=== PATIENT | male | born 1950 | race Native Hawaiian/Other Pacific Islander ===

== ENCOUNTER 2017-08-20 22:40 | Inpatient (IN) | payer BC, MEDICARE ==
[~2017-08-20] VITALS: Ht 165.1 cm; Wt 91.0 kg
[2017-08-20 22:46] VITALS: BP 142/73; PULSE 111; RESP 18; TEMP 102.3; O2SAT 95
--- NOTE | 2017-08-20 23:47 | PD ---
HPI Chief Complaint: Fever Time Seen by Provider: 23:34 Travel History International Travel<30 days: Yes ([place]) Contact w/Intl Traveler<30days: [place] Country Traveled to: [place] Traveled to known affect area: No History of Present Illness HPI The patient is a 66 year old male who presents to the [facility] emergency department with a history of febrile illness of began on . The patient has had a MAXIMUM TEMPERATURE of 103 at home. The patient reports that he has been taking Tylenol alternating with ibuprofen for the fever. The patient reports having associated dysuria, urinary frequency, and urinary urgency. He also reports having bilateral knee, ankle, and elbow pain that he describes as 10 out of 10 in severity. He denies having any joint swelling or erythema. He reports that he is also had a sore throat. He denies having any cough, congestion, neck pain, chest pain, shortness of breath, abdominal pain, vomiting , diarrhea, urinary symptoms, or neurologic symptoms. He reports that he has been nauseated. The patient reports that he traveled to [place] 08/01-08/04. [facility]. He was bitten by fire ant bites and mosquitos. The patient reports that he went to an outpatient clinic yesterday. He was diagnosed with pyelonephritis and sent home with a prescription for Cipro and doxycycline. Laboratory studies were done. He was called back today by the outpatient clinic stating that he could stop the antibiotic as the tests were negative. The patient reports that he had a negative seated test. The patient reports that he had a negative malaria tests. His urinalysis showed occult blood, otherwise unremarkable. The patient was noted to have renal insufficiency with a creatinine of 1.77 which increased compared to previously at 1.2. He denies having any rashes. [facility] Past Medical History Narrative Medical The patient's past medical history is significant for hyperlipidemia, TTP 2004- s/p immunoglobulin treatment. High Cholesterol: Yes Diminished Hearing: No Tetanus Vaccination: Unknown Influenza Vaccination: Yes Past Surgical History Narrative Surgical The patient's past surgical history is significant for tonsil and adenoidectomy. Tonsillectomy: Yes (T&A) Social History Alcohol Use: No Tobacco Use: No Substance Use: No Allergies-Medications (Allergen,Severity, Reaction): Coded Allergies: No Known Allergies (Unverified , 08/20/17) Narrative Medication atorvastatin 40mg. Review of Systems Except as stated in HPI: all other systems reviewed are Neg General / Constitutional: Positive: Fever Eyes: No: Visual changes HENT: Positive: Sore Throat, No: Headaches, Rhinorrhea, Congestion Cardiovascular: No: Chest Pain or Discomfort Respiratory: Positive: Cough, No: Shortness of Breath Gastrointestinal: Positive: Nausea, No: Vomiting, Diarrhea, Abdominal Pain, Changes in Bowel Habits, Indigestion Genitourinary: No: Dysuria Musculoskeletal: Positive: Myalgias, Arthralgias, Pain, No: Edema Skin: No Rash Neurologic: Positive: Weakness (generalized fatigue), No: Focal Abnormalities, Change in Mentation, Slurred Speech, Sensory Disturbance Psychiatric: No: Depression Endocrine: No: Polydipsia Hematologic/Lymphatic: No: Easy Bruising Physical Exam Narrative General: The patient is a well-developed well-nourished male in no acute distress. Head and Neck exam: Head is normocephalic atraumatic. Eyes: EOMI, pupils are equal round and reactive to light. Nose: Midline septum with pink mucous membranes Mouth: Dentition unremarkable. Moist mucus membranes. Posterior oropharynx is mildy erythematous. No tonsillar hypertrophy. Uvula midline. Airway patent. Neck: No palpable lymphadenopathy. No nuchal rigidity. No thyromegaly. Cardiovascular: Sinus tachycardia in the low 100s without murmurs, gallops, or rubs. No pulse deficit to the extremities on simultaneous auscultation and palpation of the radial artery. Lungs: Clear to auscultation bilaterally. No wheezes, rhonchi, or rales. Abdomen: Soft, with tenderness on palpation along the suprapubic area and left lower quadrant of the abdomen. No other tenderness on palpation of the other quadrants of the abdomen. No guarding, rebound, or rigidity. Normal bowel sounds are audible. No tenderness on palpation of McBurney's point. Negative Ybarra's sign. Extremities: No clubbing, cyanosis, or edema. 2+ pulses in all 4 extremities. No calf tenderness on palpation. The patient reports joint pain in his elbows, knees, ankles. There is no erythema or edema. Back: No spinous process tenderness to palpation. No costovertebral angle tenderness to palpation. Neurologic Exam: Grossly nonfocal. Skin Exam: No rash noted. Intact skin that is warm and dry. Data Data Last Documented VS Vital Signs Date Time Temp Pulse Resp B/P (MAP) Pulse Ox O2 Delivery O2 Flow Rate FiO2 08/21/17 01:20 100.3 105 16 140/70 (93) 96 Room Air Orders Orders Complete Blood Count With Diff (08/20/17 23:49) Comprehensive Metabolic Panel (08/20/17 23:49) Blood Culture (08/20/17:49) C-Reactive Protein (Crp) (08/20/17 23:49) Lipase (08/20/17:49) Urinalysis - C+S If Indicated (08/20/17:49) Influenzae A/B Antigen (08/20/17:49) Iv Access Insert/Monitor (08/20/17:49) Ecg Monitoring (08/20/17:49) Oximetry (08/20/17 23:49) Sodium Chlor 0.9% 1000 Ml Inj (Ns 1000 M (08/21/17 00:00) Ketorolac Inj (Toradol Inj) (08/21/17 00:00) Oral Contrast - Adult (08/21/17 00:08) Lactic Acid Sepsis Protocol (08/21/17 00:24) Diatrizoate Liq ([place]d [place] Liq) (08/21/17 00:57) Diatrizoate Liq (Md [place] Lidelmi) (08/21/17 00:58) Sodium Chlor 0.9% 1000 Ml Inj (Ns 1000 M (08/21/17 01:27) Sodium Chlor 0.9% 1000 Ml Inj (Ns 1000 M (08/21/17 01:27) Piperacil-Tazo 3.375 Gm Premix (Zosyn 3. (08/21/17 01:30) Vancomycin Inj (Vancomycin Inj) (08/21/17 01:30) Ct Abd/Pel W/O Iv Contrast (08/20/17 23:49) Admit Order (Ed Use Only) (08/21/17 02:31) Labs Laboratory Tests Test 08/21/17 00:05 08/21/17 00:22 White Blood Count 5.6 TH/MM3 Red Blood Count 4.44 MIL/MM3 Hemoglobin 14.0 GM/DL Hematocrit 40.3 % Mean Corpuscular Volume 90.8 FL Mean Corpuscular Hemoglobin 31.5 PG Mean Corpuscular Hemoglobin Concent 34.7 % Red Cell Distribution Width 13.6 % Platelet Count 128 TH/MM3 Mean Platelet Volume 9.8 FL Neutrophils (%) (Auto) 81.9 % Lymphocytes (%) (Auto) 6.3 % Monocytes (%) (Auto) 10.8 % Eosinophils (%) (Auto) 0.7 % Basophils (%) (Auto) 0.3 % Neutrophils # (Auto) 4.6 TH/MM3 Lymphocytes # (Auto) 0.4 TH/MM3 Monocytes # (Auto) 0.6 TH/MM3 Eosinophils # (Auto) 0.0 TH/MM3 Basophils # (Auto) 0.0 TH/MM3 CBC Comment DIFF FINAL Differential Comment Urine Color YELLOW Urine Turbidity HAZY Urine pH 5.5 Urine Specific [place] 1.012 Urine Protein 30 mg/dL Urine Glucose (UA) NEG mg/dL Urine Ketones NEG mg/dL Urine Occult Blood SMALL Urine Nitrite NEG Urine Bilirubin NEG Urine Urobilinogen LESS THAN 2.0 MG/DL Urine Leukocyte Esterase NEG Urine RBC 2 /hpf Urine WBC 3 /hpf Urine Amorphous Sediment RARE Urine Bacteria RARE /hpf Microscopic Urinalysis Comment CULT NOT INDICATED Blood Urea Nitrogen 23 MG/DL Creatinine 1.95 MG/DL Random Glucose 135 MG/DL Total Protein 6.4 GM/DL Albumin 2.4 GM/DL Calcium Level 7.7 MG/DL Alkaline Phosphatase 163 U/L Aspartate Amino Transf (AST/SGOT) 151 U/L Alanine Aminotransferase (ALT/SGPT) 121 U/L Total Bilirubin 0.8 MG/DL Sodium Level 130 MEQ/L Potassium Level 3.6 MEQ/L Chloride Level 102 MEQ/L Carbon Dioxide Level 21.9 MEQ/L Anion Gap 6 MEQ/L Estimat Glomerular Filtration Rate 35 ML/MIN C-Reactive Protein 19.60 MG/DL Lipase 341 U/L Lactic Acid Level 0.8 mmol/L [facility] Medical Decision Making Medical Screen Exam Complete: Yes Emergency Medical Condition: Yes Medical Record Reviewed: Yes Interpretation(s) Last Impressions Abdomen/Pelvis CT 08/20/17 6005 Signed Impressions: Service Date/Time: Monday, August 21, 2017 01:53 - CONCLUSION: 1. No evidence of acute abdominal or pelvic process. No masses are identified. 2. Appendicolith within the noninflamed appendix Sanju Snyder MD Differential Diagnosis Prostatitis, versus pyelonephritis, versus tickborne illness, versus malaria, versus other viral syndrome, versus sepsis of undetermined origin, versus diverticulitis Narrative Course During the course of the patients emergency department visit, the patients history, examination, and differential diagnosis were reviewed with the patient. The patient had IV access obtained and blood work sent for analysis. The patient was placed on a corporate treasury analyst with oximetry and blood pressure monitoring. A sepsis workup was started. A lactic acid and blood cultures 2 were drawn. The patient was initially provided 30 mL per KG IV fluid bolus. The patient was started on broad-spectrum antibiotics to include Zosyn and vancomycin. The patient was given Toradol 15 mg IV for fever reduction and joint pain. The patients laboratory studies were reviewed and remarkable for a white count of 5.6, hemoglobin 14, platelets 128 with 81.9 neutrophils, lymphocytes 6.3, monocytes 10.8. CMP is remarkable for sodium of 130, BUN 23, creatinine 1.95, glucose 135, calcium 7.7, AST 151, ALT 121, alkaline phosphatase 163, C- reactive protein 19.6, albumin 2.4, lipase 341, urinalysis shows 30 protein, small occult blood, 2 rbc's, rare bacteria. Radiology studies were reviewed and remarkable for a chest x-ray that shows cardiomegaly, no acute evidence of cardiopulmonary disease. CT scan of the abdomen and pelvis shows no acute abnormality. The patient will be admitted to the hospital for continued evaluation and treatment due to a febrile illness meeting sepsis criteria, and acute on chronic renal insufficiency. The patients results were discussed with the patient, including the plan of care. I explained that further testing and/ or monitoring is indicated based on the patients history, examination, and/ or laboratory findings. Therefore, I recommended admission for additional evaluation. The patient expressed understanding and was agreeable with this plan. The patient was admitted to the hospital in guarded condition and [facility] Critical Care Narrative Aggregate critical care time was 35 minutes. Time to perform other separately billable procedures was not included in the critical care time. My time did not include minutes spent treating any other patients simultaneously or on activities that did not directly contribute to the patient's treatment. The services I provided to this patient were to treat and/or prevent clinically significant deterioration that could result in: Respiratory failure related to fluid overload from IV fluid resuscitation, versus cardiovascular collapse from sepsis I provided critical care services requiring my management, as noted below: Chart data review, documentation time, medication orders and management, vital sign assessments/reviewing monitor data, ordering and reviewing lab tests, ordering and interpreting/reviewing x-rays and diagnostic studies, care of the patient and discussion of the patient with the admitting physicians. Sepsis Criteria SIRS Criteria (2 or more): Temp > 100.9 or < 96.8, Heart rate over 90 Sepsis Criteria (SIRS+source): Infect source susp/known Severe Sepsis (+one): Acute Oliguria/Renal Failure Criteria Outcome: Meets SIRS criteria, Meets sepsis criteria, Meets severe sepsis criteria Physician Communication Physician Communication The patient's case is discussed with Dr. Stratton who did agree to admit the patient for further evaluation and treatment at this time. Diagnosis Primary Impression: Febrile illness Additional Impression: Sepsis Qualified Codes: A41.9 - Sepsis, unspecified organism Admitting Information Admitting Physician Requests: Admit Camelia Martinez MD Aug 20, 2017 23:47
[2017-08-21] VITALS (11 sets, daily range): BP systolic 97–140; BP diastolic 59–82; PULSE 86–105; RESP 16–20; TEMP 99–101.8; O2SAT 94–98
[2017-08-21] MEDS ORDERED: KETOROLAC TROMETHAMINE 30 MG/ML (IVP) VIAL IV PUSH ONE
[2017-08-21 00:54] LABS: AUTOMATED NEUTROPHIL # 4.6 TH/MM3 (1.8-7.7); BASOPHIL % 0.3 % (0.0-2.0); EOSINOPHIL % 0.7 % (0.0-4.0); HEMATOCRIT 40.3 % (39.0-51.0); HEMO FLAGS DIFF FINAL; LYMPH % 6.3 % (9.0-44.0); LYMPHOCYTE # 0.4 TH/MM3 (1.0-4.8); MEAN CELL VOLUME 90.8 FL (80.0-100.0); MEAN CORPUSCULAR HEMOGLOBIN 31.5 PG (27.0-34.0); MEAN CORPUSCULAR HGB CONC 34.7 % (32.0-36.0); MONO % 10.8 % (0.0-8.0); NEUT % 81.9 % (16.0-70.0); PLATELET COUNT 128 TH/MM3 (150-450); RED BLOOD COUNT 4.44 MIL/MM3 (4.50-5.90); RED CELL DISTRIBUTION WIDTH 13.6 % (11.6-17.2); WHITE BLOOD COUNT 5.6 TH/MM3 (4.0-11.0)
[2017-08-21] MEDS ORDERED: DIATRIZOATE MEGLUM/DIATRIZOATE SOD 9 ML CUP ONE ×2 (00:57→00:58)
[2017-08-21 00:58] LABS: BACTERIA, URINE RARE /hpf; BLOOD, URINE SMALL (NEG); COMMENT (UR) CULT NOT INDICATED; CULTURE IF INDICATED CULT NOT INDICATED; GLUCOSE,URINE NEG (NEG); KETONE, URINE NEG (NEG); NITRITE,URINE NEG (NEG); PH, URINE 5.5 (5.0-8.5); URINE COLOR YELLOW (YELLW/STRAW)
[2017-08-21 01:11] LABS: ALT (GPT) 121 U/L (12-78); ANION GAP 6 MEQ/L (5-15); AST (GOT) 151 U/L (15-37); BICARBONATE 21.9 MEQ/L (21.0-32.0); BLOOD UREA NITROGEN 23 MG/DL (7-18); CHLORIDE 102 MEQ/L (98-107); POTASSIUM 3.6 MEQ/L (3.5-5.1); SODIUM (NA) 130 MEQ/L (136-145)
[2017-08-21 01:17] LABS: ALKALINE PHOSPHATASE 163 U/L (45-117); TOTAL BILIRUBIN ADULT 0.8 MG/DL (0.2-1.0)
[2017-08-21] MEDS ORDERED: SODIUM CHLOR 0.9% 1000 ML INJ 1,000 ML IV ONE ×3 (01:27)
[2017-08-21] MEDS ORDERED: VANCOMYCIN INJ 1,000 MG in SODIUM CHLOR 0.9% 250 ML INJ 250 ML IV ONE (01:30)
[2017-08-21] MEDS ORDERED: PIPERACIL-TAZO 3.375 GM PREMIX 50 ML IV ONE (01:30)
--- NOTE | 2017-08-21 02:26 | RADRPT ---
EXAM DATE/TIME: 08/21/2017 01:53 [facility] COMPARISON: No previous studies available for comparison. INDICATIONS : Mid to left side abdominal pain along with dysuria and fever. ORAL CONTRAST: Prescribed oral contrast ingested. RADIATION DOSE: 15.46 CTDIvol (mGy) MEDICAL HISTORY : None SURGICAL HISTORY : None. ENCOUNTER: Initial ACUITY: 4 - 6 days PAIN SCALE: 7/10 LOCATION: Abdomen. TECHNIQUE: Volumetric scanning of the abdomen and pelvis was performed. Using automated exposure control and ad justment of the mA and/or kV according to patient size, radiation dose was kept as low as reasonably achievable to obtain optimal diagnostic quality images. DICOM format image data is available electro nically for review and comparison. FINDINGS: There is subsegmental atelectasis in the both bases. A small hiatal hernia is present. The liver and spleen are normal in size and no focal defects are identified. The gallbladder and pancreas are unre markable. No intrahepatic or extrahepatic ductal dilatation is seen. The adrenal glands are unremarka ble. There are simple cysts bilaterally the largest measuring 4 cm in the lower pole. Examination of the right lower quadrant demonstrates no abnormality. The appendix is identified and appears normal w ith the exception of a tiny appendicolith. Examination of the pelvis demonstrates no evidence of free fluid or pelvic mass. No abnormally enlarg ed inguinal or retroperitoneal lymph nodes are present. The bladder is unremarkable. CONCLUSION: 1. No evidence of acute abdominal or pelvic process. No masses are identified. 2. Appendicolith within the noninflamed appendix Sanju Snyder MD on August 21, 2017 at 2:19 Board Certified Radiologist. This report was verified electronically.
[2017-08-21] MEDS ORDERED: SODIUM CHLORIDE 0.9% FLUSH 10 ML FLUSH IV FLUSH PRN (03:00)
[2017-08-21] MEDS ORDERED: Vancomycin Consult Pharmacy 1 EA OTHER SCH (03:00)
[2017-08-21] MEDS ORDERED: NALOXONE HCL 0.4 MG/ML AMP IV PUSH PRN (03:00)
--- NOTE | 2017-08-21 03:28 | RADRPT ---
EXAM DATE/TIME: 08/21/2017 02:52 [facility] COMPARISON: No previous studies available for comparison. INDICATIONS : Fever. MEDICAL HISTORY : None. SURGICAL HISTORY : None. ENCOUNTER: Initial ACUITY: 4 - 6 days PAIN SCORE: 7/10 LOCATION: Bilateral chest FINDINGS: The cardiac silhouette is enlarged in transverse diameter. The lungs are free of acute parenchymal op acity. No effusions are identified. The aortic knob is prominent with tortuosity of the descending th oracic aorta. CONCLUSION: 1. Cardiomegaly. No acute pulmonary disease. Sanju Snyder MD on August 21, 2017 at 3:23 Board Certified Radiologist. This report was verified electronically.
[2017-08-21] MEDS ORDERED: IBUPROFEN 400 MG TAB PO ONE (03:30)
[2017-08-21 05:58] LABS: GLOMERULAR FILTRATION RATE 35 ML/MIN (>89)
[2017-08-21] MEDS: PIPERACIL-TAZO 4.5 GM PREMIX 100 ML IV SCH ×3 (08:59→22:51)
[2017-08-21] MEDS: SODIUM CHLORIDE 0.9% FLUSH 10 ML FLUSH IV FLUSH SCH ×2 (10:01→22:51)
--- NOTE | 2017-08-21 11:09 | HHI.HP ---
[facility] Service [facility] Primary Care Physician Lico Nunn MD Admission Diagnosis Acute on chronic renal insufficiency, febrile illness, foreign trave Diagnoses: Travel History International Travel<30 Days: Yes ([place]) Contact w/Intl Traveler <30 Da: [place] Country Traveled to: [place] Traveled to Known Affected Are: No Past Family Social History Allergies: Coded Allergies: No Known Allergies (Unverified , 08/20/17) Physical Exam Vital Signs Vital Signs Date Time Temp Pulse Resp B/P (MAP) Pulse Ox O2 Delivery O2 Flow Rate FiO2 08/21/17 10:19 88 08/21/17 07:59 99.0 86 18 108/64 (79) 97 08/21/17 04:48 18 08/21/17 04:37 100.1 98 20 117/65 (82) 94 08/21/17 02:49 16 08/21/17 01:20 100.3 105 16 140/70 (93) 96 Room Air 08/21/17 00:50 98 08/20/17 22:46 102.3 111 18 142/73 (96) 95 Physical Exam GENERAL: This is a well-nourished, well-developed patient, in no apparent distress. SKIN: No rashes, ecchymoses or lesions. Cool and dry. HEAD: Atraumatic. Normocephalic. No temporal or scalp tenderness. EYES: Pupils equal round and reactive. Extraocular motions intact. No scleral icterus. No injection or drainage. ENT: Nose without bleeding, purulent drainage or septal hematoma. Throat without erythema, tonsillar hypertrophy or exudate. Uvula midline. Airway patent. NECK: Trachea midline. No JVD or lymphadenopathy. Supple, nontender, no meningeal signs. CARDIOVASCULAR: Regular rate and rhythm without murmurs, gallops, or rubs. RESPIRATORY: Clear to auscultation. Breath sounds equal bilaterally. No wheezes , rales, or rhonchi. GASTROINTESTINAL: Abdomen soft, non-tender, nondistended. No hepato-splenomegaly , or palpable masses. No guarding. MUSCULOSKELETAL: Extremities without clubbing, cyanosis, or edema. No joint tenderness, effusion, or edema noted. No calf tenderness. Negative Homans sign bilaterally. NEUROLOGICAL: Awake and alert. Cranial nerves II through XII intact. Motor and sensory grossly within normal limits. Five out of 5 muscle strength in all muscle groups. Normal speech. Laboratory Laboratory Tests Test 08/21/17 00:05 08/21/17 00:22 White Blood Count 5.6 Red Blood Count 4.44 Hemoglobin 14.0 Hematocrit 40.3 Mean Corpuscular Volume 90.8 Mean Corpuscular Hemoglobin 31.5 Mean Corpuscular Hemoglobin Concent 34.7 Red Cell Distribution Width 13.6 Platelet Count 128 Mean Platelet Volume 9.8 Neutrophils (%) (Auto) 81.9 Lymphocytes (%) (Auto) 6.3 Monocytes (%) (Auto) 10.8 Eosinophils (%) (Auto) 0.7 Basophils (%) (Auto) 0.3 Neutrophils # (Auto) 4.6 Lymphocytes # (Auto) 0.4 Monocytes # (Auto) 0.6 Eosinophils # (Auto) 0.0 Basophils # (Auto) 0.0 CBC Comment DIFF FINAL Differential Comment Urine Color YELLOW Urine Turbidity HAZY Urine pH 5.5 Urine Specific [place] 1.012 Urine Protein 30 Urine Glucose (UA) NEG Urine Ketones NEG Urine Occult Blood SMALL Urine Nitrite NEG Urine Bilirubin NEG Urine Urobilinogen LESS THAN 2.0 Urine Leukocyte Esterase NEG Urine RBC 2 Urine WBC 3 Urine Amorphous Sediment RARE Urine Bacteria RARE Microscopic Urinalysis Comment CULT NOT INDICATED Blood Urea Nitrogen 23 Creatinine 1.95 Random Glucose 135 Total Protein 6.4 Albumin 2.4 Calcium Level 7.7 Alkaline Phosphatase 163 Aspartate Amino Transf (AST/SGOT) 151 Alanine Aminotransferase (ALT/SGPT) 121 Total Bilirubin 0.8 Sodium Level 130 Potassium Level 3.6 Chloride Level 102 Carbon Dioxide Level 21.9 Anion Gap 6 Estimat Glomerular Filtration Rate 35 C-Reactive Protein 19.60 Lipase 341 Lactic Acid Level 0.8 Date/Time Source Procedure Growth Status 08/21/17 00:05 Blood Peripheral Aerobic Blood Culture Pending Received 08/21/17 00:05 Blood Peripheral Anaerobic Blood Culture Pending Received Result Diagram: 08/21/17 0005 08/21/17 0005 Caprini VTE Risk Assessment Caprini Risk Assessment Model Point Value = 1 Point Value = 2 Point Value = 3 Point Value = 5 Age 41-60 Minor surgery BMI > 25 kg/m2 Swollen legs Varicose veins or History of unexplained or recurrent spontaneous Oral contraceptives or hormone replacement Sepsis (< 1 month) Serious lung disease, including pneumonia (< 1 month) Abnormal pulmonary function Acute myocardial infarction Congestive heart failure (< 1 month) History of inflammatory bowel disease Medical patient at bed rest Age 61-74 Arthroscopic surgery Major open surgery (> 45 min) Laparoscopic surgery (> 45 min) Malignancy Confined to bed (> 72 hours) Immobilizing plaster cast Central venous access Age >= 75 History of VTE Family history of VTE Factor V Leiden Prothrombin [id number] Lupus anticoagulant Anticardiolipin antibodies Elevated serum homocysteine Heparin-induced thrombocytopenia Other congenital or acquired thrombophilia Stroke (< 1 month) Elective arthroplasty Hip, pelvis, or leg fracture Acute spinal cord injury (< 1 month) Prophylaxis Regimen Total Risk Factor Score Risk Level Prophylaxis Regimen 0-1 Low Early ambulation 2 Moderate Order ONE of the following: *Sequential Compression Device (SCD) *Heparin 5000 units SQ BID 3-4 Higher Order ONE of the following medications: *Heparin 5000 units SQ TID *Enoxaparin/Lovenox 40 mg SQ daily (WT < 150 kg, CrCl > 30 mL/min) *Enoxaparin/Lovenox 30 mg SQ daily (WT < 150 kg, CrCl > 10-29 mL/min) *Enoxaparin/Lovenox 30 mg SQ BID (WT < 150 kg, CrCl > 30 mL/min) AND/OR *Sequential Compression Device (SCD) 5 or more Highest Order ONE of the following medications: *Heparin 5000 units SQ TID (Preferred with Epidurals) *Enoxaparin/Lovenox 40 mg SQ daily (WT < 150 kg, CrCl > 30 mL/min) *Enoxaparin/Lovenox 30 mg SQ daily (WT < 150 kg, CrCl > 10-29 mL/min) *Enoxaparin/Lovenox 30 mg SQ BID (WT < 150 kg, CrCl > 30 mL/min) AND *Sequential Compression Device (SCD) Physician Certification Order for Inpatient Services The services are ordered in accordance with Medicare regulations or non- Medicare payer requirements, as applicable. In the case of services not specified as inpatient-only, they are appropriately provided as inpatient services in accordance with the 2-midnight benchmark. days is the estimated time the patient will need to remain in the hospital, assuming treatment plan goals are met and no additional complications. Chelsie Bergman MD Aug 21, 2017 11:09
[2017-08-21] MEDS ORDERED: IBUPROFEN 400 MG TAB PO PRN (17:15)
[2017-08-21] MEDS ORDERED: VANCOMYCIN INJ 1,500 MG in SODIUM CHLORID 0.9% 500 ML INJ 500 ML IV SCH (18:00)
--- NOTE | 2017-08-21 19:22 | PD.CONS ---
History of Present Illness Service Infectious Diseases Consult Requested By Dr Bergman Reason for Consult Evaluate patient with fevers Primary Care Physician Lico Nunn MD Diagnoses: History of Present Illness Patient seen and examined. Records reviewed. Patient is a 66-year-old male presented to the hospital complaining of fever, chills, rigors since August 15. He is also complaining of poor appetite, as well as body malaise, myalgias and arthralgias. He also has been having dysuria and urgency, but denies any hematuria or frequency. He has not had any rash. Denies any respiratory complaint. No nausea or vomiting. No significant diarrhea. No abdominal pain. No back pain. Patient had a recent travel to [place] and was there for 4 days. He went with his 36-year-old son. He had a lot of antibiotics, and some mosquito bites. He was fine when he came back and he came back August 04. His current illness started around August 15. He went to him a clinic, and he had some blood work done. His LFTs were normal at that time, and his creatinine was up compared to his baseline of 1.26. Was 1.77. He had a malaria smear that was negative. His urinalysis was unremarkable. Patient was given Cipro and doxycycline to cover for possible pyelonephritis, but he did not take the Cipro, and took about 3 doses of doxycycline. He was called in to report all his test results, and the patient was instructed to stop the antibiotics. The who is a local vice provost, was concerned about the elevated creatinine, so the patient was taken to the emergency room for further evaluation and treatment. Patient has had very poor appetite, and has had poor by mouth intake. Since admission, the highest temperature was 102.8 and I was yesterday. Today his had low-grade temperatures. His dysuria is better. He hasn't had any shaking chills but still has myalgias. His creatinine is up to 1.95. Urinalysis is unremarkable. Chest x-rays normal. AST, ALT, and alkaline phosphatase are elevated. His LFTs done 2 days ago were all within normal limits. CT of the abdomen and pelvis is unremarkable Infectious disease consultation has been requested to evaluate the patient. Review of Systems Constitutional: COMPLAINS OF: Fever, Chills, Change in appetite, Night Sweats Eyes: DENIES: Eye pain Ears, nose, mouth, throat: DENIES: Nasal discharge, Oral lesions, Throat pain, Ear Pain, Running Nose, Sinus Pain Respiratory: DENIES: Cough, Shortness of breath Cardiovascular: DENIES: Chest pain, Palpitations, Syncope, Dyspnea on Exertion , Lower Extremity Edema Gastrointestinal: DENIES: Abdominal pain, Diarrhea, Nausea, Vomiting, Difficulty Swallowing Genitourinary: COMPLAINS OF: Urgency, Dysuria, DENIES: Hematuria Musculoskeletal: DENIES: Joint pain, Muscle aches, Joint Swelling, Neck pain Integumentary: DENIES: Rash Neurologic: DENIES: Headache Psychiatric: DENIES: Anxiety, Hallucinations Past Family Social History Allergies: Coded Allergies: No Known Allergies (Unverified , 08/20/17) Past Medical History Hyperlipidemia ITP Past Surgical History T and A Reported Medications I attest that I obtained, updated or reviewed the home and current medications. 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[place], Fairly active and exercises regularly No smoking No alcohol abuse No illicit drug use Physical Exam Vital Signs Vital Signs Date Time Temp Pulse Resp B/P (MAP) Pulse Ox O2 Delivery O2 Flow Rate FiO2 08/21/17 16:06 99.8 93 18 97/59 (72) 96 08/21/17 15:51 92 08/21/17 12:26 94 08/21/17 11:24 99.0 99 18 115/71 (86) 95 08/21/17 10:19 88 08/21/17 07:59 99.0 86 18 108/64 (79) 97 08/21/17 04:48 18 08/21/17 04:37 100.1 98 20 117/65 (82) 94 08/21/17 02:49 16 08/21/17 01:20 100.3 105 16 140/70 (93) 96 Room Air 08/21/17 00:50 98 08/20/17 22:46 102.3 111 18 142/73 (96) 95 Physical Exam GENERAL: Patient is a well-nourished, well-developed male, awake and alert, not in respiratory distress. He does not look toxic appearing SKIN: Warm and dry. No generalized rash, no ecchymoses and no evidence of embolic lesions. HEAD: Atraumatic. Normocephalic. No temporal wasting, or tenderness. EYES: [place] conjunctiva. No petechia or hemorrhage. Pupils equal, round and reactive to light. Extraocular movements full and intact. No scleral icterus. No injection or drainage. EARS, NOSE AND THROAT: Nose without bleeding or purulent nasal discharge. No sinus tenderness. Mucous membranes pink and moist. No oral lesions noted. No exudate. NECK: Trachea midline. Supple and not tender, no meningeal signs. No lymphadenopathy CARDIOVASCULAR: Regular rate and rhythm. No murmurs, rubs or gallops heard RESPIRATORY: Clear to auscultation. Breath sounds equal bilaterally. No rales , wheezing or rhonchi ABDOMEN: Soft, non-tender, nondistended. Bowel sounds present and normoactive. No guarding. No rebound. No organomegaly. EXTREMITIES: No clubbing, cyanosis, or edema. No joint effusion, has good ROM. No calf tenderness. Well perfused and warm. Has multiple insects bites at ankles mostly with no evidence of infection NEUROLOGICAL: Awake and alert. Cranial nerves grossly intact. Motor grossly within normal limits. PSYCHIATRIC: Normal affect, calm and cooperative. LINE: No evidence of infection Laboratory Laboratory Tests Test 08/21/17 00:05 08/21/17 00:22 08/21/17 11:05 White Blood Count 5.6 Red Blood Count 4.44 Hemoglobin 14.0 Hematocrit 40.3 Mean Corpuscular Volume 90.8 Mean Corpuscular Hemoglobin 31.5 Mean Corpuscular Hemoglobin Concent 34.7 Red Cell Distribution Width 13.6 Platelet Count 128 Mean Platelet Volume 9.8 Neutrophils (%) (Auto) 81.9 Lymphocytes (%) (Auto) 6.3 Monocytes (%) (Auto) 10.8 Eosinophils (%) (Auto) 0.7 Basophils (%) (Auto) 0.3 Neutrophils # (Auto) 4.6 Lymphocytes # (Auto) 0.4 Monocytes # (Auto) 0.6 Eosinophils # (Auto) 0.0 Basophils # (Auto) 0.0 CBC Comment DIFF FINAL Differential Comment Urine Color YELLOW Urine Turbidity HAZY Urine pH 5.5 Urine Specific Raymond 1.012 Urine Protein 30 Urine Glucose (UA) NEG Urine Ketones NEG Urine Occult Blood SMALL Urine Nitrite NEG Urine Bilirubin NEG Urine Urobilinogen LESS THAN 2.0 Urine Leukocyte Esterase NEG Urine RBC 2 Urine WBC 3 Urine Amorphous Sediment RARE Urine Bacteria RARE Microscopic Urinalysis Comment CULT NOT INDICATED Blood Urea Nitrogen 23 Creatinine 1.95 Random Glucose 135 Total Protein 6.4 Albumin 2.4 Calcium Level 7.7 Alkaline Phosphatase 163 Aspartate Amino Transf (AST/SGOT) 151 Alanine Aminotransferase (ALT/SGPT) 121 Total Bilirubin 0.8 Sodium Level 130 Potassium Level 3.6 Chloride Level 102 Carbon Dioxide Level 21.9 Anion Gap 6 Estimat Glomerular Filtration Rate 35 C-Reactive Protein 19.60 Lipase 341 Lactic Acid Level 0.8 Blood Smear Pathologist Review Date/Time Source Procedure Growth Status 08/21/17 00:05 Blood Peripheral Aerobic Blood Culture Pending Received 08/21/17 00:05 Blood Peripheral Anaerobic Blood Culture Pending Received Result Diagram: 08/21/17 0005 08/21/17 0005 Imaging RADIOLOGY STUDIES/FILMS REVIEWED Chest X-Ray 08/21/17 0249 Signed Impressions: Service Date/Time: Monday, August 21, 2017 02:52 - CONCLUSION: 1. Cardiomegaly. No acute pulmonary disease. Sanju Snyder MD Abdomen/Pelvis CT 08/20/17 2349 Signed Impressions: Service Date/Time: Monday, August 21, 2017 01:53 - CONCLUSION: 1. No evidence of acute abdominal or pelvic process. No masses are identified. 2. Appendicolith within the noninflamed appendix Sanju Snyder MD Assessment and Plan Assessment and Plan IMPRESSION Febrile illness with myalgias and arthralgias, WBC normal, elevated LFTs, ? viral syndrome - has increased monocytes - has dysuria but UA unremarkable - ?biliary, ?passed stone, but no pain - recent travel to [facility] x 4 days Hx ITP Acute on chronic renal insufficiency - likely worsened by poor po intake, and fluid loss from fevers RECOMMENDATION Stop Vancomycin ESR Repeat LFT, CBC and BMP tomorrow Check monoscreen Continue Zosyn for now Follow temps Monitor progress I will determine course of RX once work-up completed and based on his progress I will follow along with you Thank you for this consultation Discussed Condition With Explained plan to the patient and Dr Nunn Discussed with Dorothea Soriano MD Aug 21, 2017 19:22
[2017-08-21 22:01] LABS: ANION GAP 9 MEQ/L (5-15); AST (GOT) 101 U/L (15-37); BICARBONATE 22.1 MEQ/L (21.0-32.0); BLOOD UREA NITROGEN 20 MG/DL (7-18); CHLORIDE 103 MEQ/L (98-107); GLOMERULAR FILTRATION RATE 33 ML/MIN (>89); SODIUM (NA) 134 MEQ/L (136-145)
[2017-08-21 22:02] LABS: ALT (GPT) 102 U/L (12-78)
[2017-08-21 22:04] LABS: ALKALINE PHOSPHATASE 160 U/L (45-117)
[2017-08-22 00:38] VITALS: BP 93/53; PULSE 83; RESP 18; TEMP 98.8; O2SAT 96
[2017-08-22 04:00] VITALS: BP 95/61; PULSE 75; RESP 18; TEMP 96; O2SAT 99
[2017-08-22] MEDS: PIPERACIL-TAZO 4.5 GM PREMIX 100 ML IV SCH ×2 (06:04→06:14)
[2017-08-22 08:00] VITALS: BP 100/61; PULSE 73; RESP 18; TEMP 96.8; O2SAT 99
[2017-08-22 08:32] LABS: AUTOMATED NEUTROPHIL # 5.4 TH/MM3 (1.8-7.7); BASOPHIL % 0.6 % (0.0-2.0); EOSINOPHIL # 0.1 TH/MM3 (0-0.4); EOSINOPHIL % 1.6 % (0.0-4.0); HEMATOCRIT 35.4 % (39.0-51.0); HEMO FLAGS DIFF FINAL; LYMPH % 12.5 % (9.0-44.0); LYMPHOCYTE # 0.9 TH/MM3 (1.0-4.8); MEAN CELL VOLUME 91.3 FL (80.0-100.0); MEAN CORPUSCULAR HEMOGLOBIN 31.6 PG (27.0-34.0); MEAN CORPUSCULAR HGB CONC 34.6 % (32.0-36.0); MONO % 12.1 % (0.0-8.0); NEUT % 73.2 % (16.0-70.0); PLATELET COUNT 140 TH/MM3 (150-450); RED BLOOD COUNT 3.88 MIL/MM3 (4.50-5.90); RED CELL DISTRIBUTION WIDTH 13.9 % (11.6-17.2); WHITE BLOOD COUNT 7.3 TH/MM3 (4.0-11.0)
[2017-08-22 08:57] LABS: BICARBONATE 19.6 MEQ/L (21.0-32.0); POTASSIUM 3.5 MEQ/L (3.5-5.1)
[2017-08-22] MEDS: SODIUM CHLORIDE 0.9% FLUSH 10 ML FLUSH IV FLUSH SCH ×2 (09:00→20:23)
[2017-08-22 09:02] LABS: INDIRECT BILIRUBIN 0.3 MG/DL (0.0-0.8); TOTAL BILIRUBIN ADULT 0.7 MG/DL (0.2-1.0)
[2017-08-22 11:21] VITALS: BP 104/63; PULSE 78; RESP 20; TEMP 96.2; O2SAT 96
--- NOTE | 2017-08-22 13:15 | RADRPT ---
EXAM DATE/TIME: 08/22/2017 12:05 [facility] COMPARISON: No previous studies available for comparison. INDICATIONS : Increased BUN/creatinine. MEDICAL HISTORY : Hypercholesterolemia. Dysuria. SURGICAL HISTORY : Tonsillectomy. ENCOUNTER: Initial ACUITY: 1 day PAIN SCORE: 0/10 LOCATION: Bilateral flank MEASUREMENTS: RIGHT KIDNEY: 11.7 x 5.7 x 6.9 cm LEFT KIDNEY: 11.1 x 5.0 x 6.2 cm FINDINGS: RIGHT KIDNEY: Renal cortex is normal in thickness and echotexture. No hydronephrosis, stone, or mass. There are s everal benign-appearing right renal cysts. The largest cyst measures 2.6 cm in the lower pole. There is a cyst measuring 2.5 cm in the upper pole. There is a cyst measuring 2.3 cm in the midpole. LEFT KIDNEY: Renal cortex is normal in thickness and echotexture. No hydronephrosis, stone, or mass. There are s everal benign-appearing cysts. The largest cyst measures 4 cm in the midpole. There is a cyst measuri ng 3 cm in the midpole. BLADDER: Within normal limits given the degree of distension. CONCLUSION: 1. No hydronephrosis. 2. Bilateral benign-appearing renal cysts. Alex Crowe MD on August 22, 2017 at 13:12 Board Certified Radiologist. This report was verified electronically.
--- NOTE | 2017-08-22 13:23 | HHI.PR ---
Subjective Remarks Patient in nad. He say she feels tired. No fevers overnight, however he had chills. No n/v/d/c. Had a normal BM. No chest pain, sob. Good urine OP, no urinary complaints, says no bloody urine. Objective Vitals Vital Signs Date Time Temp Pulse Resp B/P (MAP) Pulse Ox O2 Delivery O2 Flow Rate FiO2 08/22/17 11:21 96.2 78 20 104/63 (77) 96 08/22/17 08:00 96.8 73 18 100/61 (74) 99 08/22/17 04:00 96.0 75 18 95/61 (72) 99 08/22/17 00:38 98.8 83 18 93/53 (66) 96 08/21/17 20:00 101.8 95 18 118/82 (94) 97 08/21/17 18:20 100.3 95 17 111/66 (81) 95 08/21/17 16:06 99.8 93 18 97/59 (72) 96 08/21/17 15:51 92 I/O 08/21/17 08/21/17 08/21/17 08/22/17 08/22/17 08/22/17 07:00 15:00 23:00 07:00 15:00 23:00 Intake Total 3300 ml 100 ml 0 ml 200 ml 100 ml Balance 3300 ml 100 ml 0 ml 200 ml 100 ml Intake IV Total 3300 ml 100 ml 0 ml 200 ml 100 ml # Voids 1 Result Diagram: 08/22/17 0636 08/22/17 0636 Imaging Last Impressions Renal Ultrasound 08/22/17 0000 Signed Impressions: Service Date/Time: August 12:05 - CONCLUSION: 1. No hydronephrosis. 2. Bilateral benign-appearing renal cysts. Alex Crowe MD Chest X-Ray 08/21/17 0249 Signed Impressions: Service Date/Time: Monday, August 21, 2017 02:52 - CONCLUSION: 1. Cardiomegaly. No acute pulmonary disease. Sanju Snyder MD Abdomen/Pelvis CT 08/20/17 2993 Signed Impressions: Service Date/Time: Monday, August 21, 2017 01:53 - CONCLUSION: 1. No evidence of acute abdominal or pelvic process. No masses are identified. 2. Appendicolith within the noninflamed appendix Sanju Snyder MD Objective Remarks GENERAL: Patient is a well-nourished, well-developed male, awake and alert, not in respiratory distress. He does not look toxic appearing CARDIOVASCULAR: Regular rate and rhythm. No murmurs, rubs or gallops heard RESPIRATORY: Clear to auscultation. Breath sounds equal bilaterally. No rales , wheezing or rhonchi ABDOMEN: Soft, non-tender, nondistended. Bowel sounds present and normoactive. No guarding. No rebound. No organomegaly. EXTREMITIES: No clubbing, cyanosis, or edema. No joint effusion, has good ROM. No calf tenderness. Well perfused and warm. Has multiple insects bites at ankles mostly with no evidence of infection NEUROLOGICAL: Awake and alert. Cranial nerves grossly intact. Motor grossly within normal limits. PSYCHIATRIC: Normal affect, calm and cooperative. LINE: No evidence of infection A/P Assessment and Plan Very pleasant 66 yo male with Febrile illness with myalgias and arthralgias, WBC normal, elevated LFTs, ? viral syndrome - has increased monocytes - has dysuria but UA unremarkable - ?biliary, ?passed stone, but no pain - recent travel to [facility] x 4 days - Consulted ID specialist Dr Dillon ff. appreciate recommendations - Stop Vancomycin - Check ESR - Repeat LFT, CBC and BMP tomorrow - Check monoscreen is negative - Continue Zosyn for now Transaminitis: consider hep panel. Liver function improved significantly Hx ITP Acute on chronic renal insufficiency - likely worsened by poor po intake, and fluid loss from fevers - IVF MARINA on CKD2 Cr at 2.19 on admission. Improving. Kidney US reviewed benign cysts. Consult Dr Monique nephrology Discussed Condition With Patient, nurse, Dr Dillon ID specialist Latonia Ramos MD Aug 22, 2017 13:23
--- NOTE | 2017-08-22 14:44 | HHI.IDPN ---
Subjective Subjective Remarks Patient is a 66-year-old male presented to the hospital complaining of fever, chills, rigors since August 15. He is also complaining of poor appetite, as well as body malaise, myalgias and arthralgias. He also has been having dysuria and urgency, but denies any hematuria or frequency. He has not had any rash. Denies any respiratory complaint. No nausea or vomiting. No significant diarrhea. No abdominal pain. No back pain. Patient had a recent travel to [place] and was there for 4 days. He went with his 36-year-old son. He had a lot of antibiotics, and some mosquito bites. He was fine when he came back and he came back August 04. His current illness started around August 15. He went to him a clinic, and he had some blood work done. His LFTs were normal at that time, and his creatinine was up compared to his baseline of 1.26. Was 1.77. He had a malaria smear that was negative. His urinalysis was unremarkable. Patient was given Cipro and doxycycline to cover for possible pyelonephritis, but he did not take the Cipro, and took about 3 doses of doxycycline. He was called in to report all his test results, and the patient was instructed to stop the antibiotics. The who is a local microarray specialist, was concerned about the elevated creatinine, so the patient was taken to the emergency room for further evaluation and treatment. Patient has had very poor appetite, and has had poor by mouth intake. Since admission, the highest temperature was 102.8 and I was yesterday. Today his had low-grade temperatures. His dysuria is better. He hasn't had any shaking chills but still has myalgias. His creatinine is up to 1.95. Urinalysis is unremarkable. Chest x-rays normal. AST, ALT, and alkaline phosphatase are elevated. His LFTs done 2 days ago were all within normal limits. CT of the abdomen and pelvis is unremarkable Infectious disease consultation has been requested to evaluate the patient. Had fever last night Temps better today Body aches, myalgias better Appetite better Labs reviewed LFT improving BC negative Still C/O dysuria, has been an on and off problem , chronic, but worse now since he has been sick Antibiotics I attest that I obtained, updated or reviewed the home and current medications. Letty Current Medications Medications (Trade) Dose Ordered Sig/Mark Anthony Route Start Time Stop Time Status Last Admin (NS Flush) 2 ml UNSCH PRN IV FLUSH 08/21/17 03:00 (NS Flush) 2 ml BID IV FLUSH 08/21/17 09:00 08/22/17 09:00 (Narcan Inj) 0.4 mg UNSCH PRN IV PUSH 08/21/17 03:00 (Motrin) 400 mg Q8H PRN PO 08/21/17 17:15 08/21/17 19:56 Piperacillin Sod/ Tazobactam Sod 50 ml @ 100 mls/hr Q6H IV 08/22/17 15:00 Lines PIV Past Medical History Hyperlipidemia ITP Past Surgical History T and A Allergies: Coded Allergies: No Known Allergies (Unverified , 08/20/17) Objective . Vital Signs Date Time Temp Pulse Resp B/P (MAP) Pulse Ox O2 Delivery O2 Flow Rate FiO2 08/22/17 11:21 96.2 78 20 104/63 (77) 96 08/22/17 08:00 96.8 73 18 100/61 (74) 99 08/22/17 04:00 96.0 75 18 95/61 (72) 99 08/22/17 00:38 98.8 83 18 93/53 (66) 96 08/21/17 20:00 101.8 95 18 118/82 (94) 97 08/21/17 18:20 100.3 95 17 111/66 (81) 95 08/21/17 16:06 99.8 93 18 97/59 (72) 96 08/21/17 15:51 92 08/22/17 08/22/17 08/23/17 15:00 23:00 07:00 Intake Total 100 ml Balance 100 ml Intake IV Total 100 ml . Laboratory Tests Test 08/21/17 00:05 08/21/17 11:05 08/22/17 06:36 White Blood Count 5.6 TH/MM3 7.3 TH/MM3 Red Blood Count 4.44 MIL/MM3 3.88 MIL/MM3 Hemoglobin 14.0 GM/DL 12.3 GM/DL Hematocrit 40.3 % 35.4 % Mean Corpuscular Volume 90.8 FL 91.3 FL Mean Corpuscular Hemoglobin 31.5 PG 31.6 PG Mean Corpuscular Hemoglobin Concent 34.7 % 34.6 % Red Cell Distribution Width 13.6 % 13.9 % Platelet Count 128 TH/MM3 140 TH/MM3 Mean Platelet Volume 9.8 FL 10.1 FL Neutrophils (%) (Auto) 81.9 % 73.2 % Lymphocytes (%) (Auto) 6.3 % 12.5 % Monocytes (%) (Auto) 10.8 % 12.1 % Eosinophils (%) (Auto) 0.7 % 1.6 % Basophils (%) (Auto) 0.3 % 0.6 % Neutrophils # (Auto) 4.6 TH/MM3 5.4 TH/MM3 Lymphocytes # (Auto) 0.4 TH/MM3 0.9 TH/MM3 Monocytes # (Auto) 0.6 TH/MM3 0.9 TH/MM3 Eosinophils # (Auto) 0.0 TH/MM3 0.1 TH/MM3 Basophils # (Auto) 0.0 TH/MM3 0.0 TH/MM3 CBC Comment DIFF FINAL DIFF FINAL Differential Comment Blood Smear Pathologist Review Erythrocyte Sedimentation Rate 46 mm/hr Laboratory Tests Test 08/21/17 00:05 08/21/17 00:22 08/21/17 21:04 08/22/17 06:36 Blood Urea Nitrogen 23 MG/DL 20 MG/DL 23 MG/DL Creatinine 1.95 MG/DL 2.04 MG/DL 1.95 MG/DL Random Glucose 135 MG/DL 115 MG/DL 108 MG/DL Total Protein 6.4 GM/DL 6.4 GM/DL 5.3 GM/DL Albumin 2.4 GM/DL 2.2 GM/DL 1.7 GM/DL Calcium Level 7.7 MG/DL 7.9 MG/DL 7.5 MG/DL Alkaline Phosphatase 163 U/L 160 U/L 126 U/L Aspartate Amino Transf (AST/SGOT) 151 U/L 101 U/L 63 U/L Alanine Aminotransferase (ALT/SGPT) 121 U/L 102 U/L 71 U/L Total Bilirubin 0.8 MG/DL 1.0 MG/DL 0.7 MG/DL Sodium Level 130 MEQ/L 134 MEQ/L 133 MEQ/L Potassium Level 3.6 MEQ/L 4.0 MEQ/L 3.5 MEQ/L Chloride Level 102 MEQ/L 103 MEQ/L 103 MEQ/L Carbon Dioxide Level 21.9 MEQ/L 22.1 MEQ/L 19.6 MEQ/L Anion Gap 6 MEQ/L 9 MEQ/L 10 MEQ/L Estimat Glomerular Filtration Rate 35 ML/MIN 33 ML/MIN 34 ML/MIN C-Reactive Protein 19.60 MG/DL Lipase 341 U/L Lactic Acid Level 0.8 mmol/L Direct Bilirubin 0.4 MG/DL Indirect Bilirubin 0.3 MG/DL Microbiology Date/Time Source Procedure Growth Status 08/21/17 00:05 Blood Peripheral Aerobic Blood Culture - Preliminary NO GROWTH IN 1 DAY Resulted 08/21/17 00:05 Blood Peripheral Anaerobic Blood Culture - Preliminary NO GROWTH IN 1 DAY Resulted 08/21/17 00:05 Blood Peripheral Aerobic Blood Culture - Preliminary NO GROWTH IN 1 DAY Resulted 08/21/17 00:05 Blood Peripheral Anaerobic Blood Culture - Preliminary NO GROWTH IN 1 DAY Resulted Imaging Renal Ultrasound 08/22/17 0000 Signed Impressions: Service Date/Time: August 12:05 - CONCLUSION: 1. No hydronephrosis. 2. Bilateral benign-appearing renal cysts. Alex Crowe MD Chest X-Ray 08/21/17 0249 Signed Impressions: Service Date/Time: Monday, August 21, 2017 02:52 - CONCLUSION: 1. Cardiomegaly. No acute pulmonary disease. Sanju Snyder MD Abdomen/Pelvis CT 08/20/17 3907 Signed Impressions: Service Date/Time: Monday, August 21, 2017 01:53 - CONCLUSION: 1. No evidence of acute abdominal or pelvic process. No masses are identified. 2. Appendicolith within the noninflamed appendix Sanju Snyder MD Physical Exam GENERAL: awake and alert, not in respiratory distress. He does not look toxic appearing SKIN: Warm and dry. No generalized rash, no ecchymoses and no evidence of embolic lesions. HEAD: Atraumatic. Normocephalic. No temporal wasting, or tenderness. EYES: [place] conjunctiva. No petechia or hemorrhage. Pupils equal, round and reactive to light. Extraocular movements full and intact. No scleral icterus. No injection or drainage. EARS, NOSE AND THROAT: Nose without bleeding or purulent nasal discharge. No sinus tenderness. Mucous membranes pink and moist. No oral lesions noted. No exudate. NECK: Trachea midline. Supple and not tender, no meningeal signs. No lymphadenopathy CARDIOVASCULAR: Regular rate and rhythm. No murmurs, rubs or gallops heard RESPIRATORY: Clear to auscultation. Breath sounds equal bilaterally. No rales , wheezing or rhonchi ABDOMEN: Soft, non-tender, nondistended. Bowel sounds present and normoactive. No guarding. No rebound. No organomegaly. EXTREMITIES: No clubbing, cyanosis, or edema. No calf tenderness. Well perfused and warm. Has multiple insects bites at ankles mostly with no evidence of infection NEUROLOGICAL: Awake and alert. Cranial nerves grossly intact. Motor grossly within normal limits. PSYCHIATRIC: Normal affect, calm and cooperative. LINE: No evidence of infection Assessment & Plan Remarks IMPRESSION Febrile illness with myalgias and arthralgias, WBC normal, elevated LFTs, ? viral syndrome - has increased monocytes - has dysuria but UA unremarkable - LFTs better - recent travel to [facility] x 4 days Persistent dysuria, UA with small RBC and WBC Hx ITP Acute on chronic renal insufficiency - likely worsened by poor po intake, and fluid loss from fevers RECOMMENDATION Stop Zosyn Cipro x 7 days for dysuria repeat malaria smear if with fever tonight Monitor temps If temps ok overnight and he continues to improve, should be ok to D/C tomorrow D/W patient regarding urology evaluation as outpatient for his dysuria Dorothea Dillon MD Aug 22, 2017 14:44
[2017-08-22] MEDS ORDERED: PIPERACIL-TAZO 2.25 GM PREMIX 50 ML IV SCH (15:00)
[2017-08-22 16:00] VITALS: BP 109/70; PULSE 73; RESP 16; TEMP 96.7; O2SAT 98
--- NOTE | 2017-08-22 18:20 | PD.CONS ---
HPI Service Nephrology Consult Requested By Dr. Ramos Reason for Consult Acute renal failure Primary Care Physician Lico Nunn MD History of Present Illness Patient is a 66-year-old the male with history of ITP which resolved in 2003, he stated that he was on a trip to [facility] and came back and got sick with high -grade fever with joint pains and muscle aches, he was noticed to have renal insufficiency with a creatinine around 1.9 with a increased to 2.04, now declined to 1.9, patient has abnormal liver function tests which are getting better, infectious disease is managing his antibiotic and blood cultures have been negative patient is overall feeling better he said today he has no dysuria or blood in the urine Review of Systems Constitutional: COMPLAINS OF: Fatigue, Fever Musculoskeletal: COMPLAINS OF: Joint pain, Muscle aches Past Family Social History Allergies: Coded Allergies: No Known Allergies (Unverified , 08/20/17) Past Medical History IT[place] [address] Wade. IgG Hyperlipidemia Past Surgical History Tonsil and adenoidectomy Active Ordered Medications Current Medications Medications (Trade) Dose Ordered Sig/Mark Anthony Route Start Time Stop Time Status Last Admin (NS Flush) 2 ml UNSCH PRN IV FLUSH 08/21/17 03:00 (NS Flush) 2 ml BID IV FLUSH 08/21/17 09:00 08/22/17 09:00 (Narcan Inj) 0.4 mg UNSCH PRN IV PUSH 08/21/17 03:00 (Motrin) 400 mg Q8H PRN PO 08/21/17 17:15 08/21/17 19:56 (Cipro) 500 mg Q12HR PO 08/22/17 21:00 08/29/17 20:59 Family History Noncontributory Social History Denies smoking or alcohol Physical Exam Vital Signs Vital Signs Date Time Temp Pulse Resp B/P (MAP) Pulse Ox O2 Delivery O2 Flow Rate FiO2 08/22/17 16:00 96.7 73 16 109/70 (83) 98 08/22/17 11:21 96.2 78 20 104/63 (77) 96 08/22/17 08:00 96.8 73 18 100/61 (74) 99 08/22/17 04:00 96.0 75 18 95/61 (72) 99 08/22/17 00:38 98.8 83 18 93/53 (66) 96 08/21/17 20:00 101.8 95 18 118/82 (94) 97 08/21/17 18:20 100.3 95 17 111/66 (81) 95 Physical Exam GENERAL: Well-nourished, well-developed patient. SKIN: Warm and dry. HEAD: Normocephalic. EYES: No scleral icterus. No injection or drainage. NECK: Supple, trachea midline. No JVD or lymphadenopathy. CARDIOVASCULAR: Regular rate and rhythm without murmurs, gallops, or rubs. RESPIRATORY: Breath sounds equal bilaterally. No accessory muscle use. GASTROINTESTINAL: Abdomen soft, non-tender, nondistended. EXTREMITIES: No cyanosis, or edema. NEUROLOGICAL: Awake, alert, and oriented x 3. Non-focal. Laboratory Laboratory Tests Test 08/21/17 21:04 08/22/17 06:36 Blood Urea Nitrogen 20 23 Creatinine 2.04 1.95 Random Glucose 115 108 Total Protein 6.4 5.3 Albumin 2.2 1.7 Calcium Level 7.9 7.5 Alkaline Phosphatase 160 126 Aspartate Amino Transf (AST/SGOT) 101 63 Alanine Aminotransferase (ALT/SGPT) 102 71 Total Bilirubin 1.0 0.7 Sodium Level 134 133 Potassium Level 4.0 3.5 Chloride Level 103 103 Carbon Dioxide Level 22.1 19.6 Anion Gap 9 10 Estimat Glomerular Filtration Rate 33 34 White Blood Count 7.3 Red Blood Count 3.88 Hemoglobin 12.3 Hematocrit 35.4 Mean Corpuscular Volume 91.3 Mean Corpuscular Hemoglobin 31.6 Mean Corpuscular Hemoglobin Concent 34.6 Red Cell Distribution Width 13.9 Platelet Count 140 Mean Platelet Volume 10.1 Neutrophils (%) (Auto) 73.2 Lymphocytes (%) (Auto) 12.5 Monocytes (%) (Auto) 12.1 Eosinophils (%) (Auto) 1.6 Basophils (%) (Auto) 0.6 Neutrophils # (Auto) 5.4 Lymphocytes # (Auto) 0.9 Monocytes # (Auto) 0.9 Eosinophils # (Auto) 0.1 Basophils # (Auto) 0.0 CBC Comment DIFF FINAL Differential Comment Erythrocyte Sedimentation Rate 46 Direct Bilirubin 0.4 Indirect Bilirubin 0.3 Monoscreen NEG Date/Time Source Procedure Growth Status 08/21/17 00:05 Blood Peripheral Aerobic Blood Culture - Preliminary NO GROWTH IN 1 DAY Resulted 08/21/17 00:05 Blood Peripheral Anaerobic Blood Culture - Preliminary NO GROWTH IN 1 DAY Resulted Result Diagram: 08/22/17 0636 08/22/17 0636 Imaging Last Impressions Renal Ultrasound 08/22/17 0000 Signed Impressions: Service Date/Time: August 12:05 - CONCLUSION: 1. No hydronephrosis. 2. Bilateral benign-appearing renal cysts. Alex Crowe MD Chest X-Ray 08/21/17 0249 Signed Impressions: Service Date/Time: Monday, August 21, 2017 02:52 - CONCLUSION: 1. Cardiomegaly. No acute pulmonary disease. Sanju Snyder MD Abdomen/Pelvis CT 08/20/17 0489 Signed Impressions: Service Date/Time: Monday, August 21, 2017 01:53 - CONCLUSION: 1. No evidence of acute abdominal or pelvic process. No masses are identified. 2. Appendicolith within the noninflamed appendix Sanju Snyder MD Assessment and Plan Problem List: (1) MARINA (acute kidney injury) ICD Codes: N17.9 - Acute kidney failure, unspecified Plan: Appears to have resolving acute renal insufficiency likely related to underlying infection although cultures are negative He has no history of nausea vomiting diarrhea, respiratory infection Unusual infections can be considered like leptospirosis usually has enlarged kidney He did respond to antibiotic Other consideration is low platelets which may be related to history of ITP or recent infection Plan LDH, C-reactive proteins and serum haptoglobin, protein electrophoreses, CHRISTOFER C3 to C4 Plan B is to discharge him if his creatinine is declining 1.7 or better Immunologic can be followed as an outpatient Discussed with Dr. Ramos (2) CKD (chronic kidney disease) stage 2, GFR 60-89 ml/min ICD Codes: N18.2 - Chronic kidney disease, stage 2 (mild) Plan: Baseline creatinine 1.26 GFR of 60 (3) Transaminitis ICD Codes: R74.0 - Nonspecific elevation of levels of transaminase and lactic acid dehydrogenase [LDH] Plan: LFTs improved (4) Febrile illness, acute ICD Codes: R50.9 - Fever, unspecified Plan: ID is following (5) Thrombocytopenic disorder ICD Codes: D69.6 - Thrombocytopenia, unspecified Status: Acute Plan: Previous history of ITP Platelets are improving (6) Hyponatremia ICD Codes: E87.1 - Hypo-osmolality and hyponatremia Plan: Check urine sodium creatinine osmolality Reza Monique MD Aug 22, 2017 18:20
[2017-08-22 20:00] VITALS: BP 99/64; PULSE 66; RESP 22; TEMP 97.5; O2SAT 96
[2017-08-22] MEDS: CIPROFLOXACIN 500 MG TAB PO SCH (20:22)
[2017-08-22 20:28] LABS: BLOOD, URINE TRACE (NEG); COMMENT (UR) CULT NOT INDICATED; CULTURE IF INDICATED CULT NOT INDICATED; GLUCOSE,URINE NEG (NEG); KETONE, URINE NEG (NEG); NITRITE,URINE NEG (NEG); URINE COLOR LIGHT-YELLOW (YELLW/STRAW)
[2017-08-23] VITALS: BP 114/68; PULSE 77; RESP 20; TEMP 99.5; O2SAT 95
[2017-08-23 04:00] VITALS: BP 121/75; PULSE 78; RESP 20; TEMP 98.9; O2SAT 95
[2017-08-23 08:00] VITALS: BP 132/80; PULSE 77; RESP 18; TEMP 97.8; O2SAT 97
[2017-08-23] MEDS: SODIUM CHLORIDE 0.9% FLUSH 10 ML FLUSH IV FLUSH SCH (08:24)
[2017-08-23] MEDS: CIPROFLOXACIN 500 MG TAB PO SCH (08:24)
[2017-08-23 08:34] LABS: AUTOMATED NEUTROPHIL # 3.5 TH/MM3 (1.8-7.7); BASOPHIL # 0.1 TH/MM3 (0-0.2); EOSINOPHIL # 0.2 TH/MM3 (0-0.4); EOSINOPHIL % 3.8 % (0.0-4.0); HEMATOCRIT 39.1 % (39.0-51.0); LYMPH % 23.3 % (9.0-44.0); LYMPHOCYTE # 1.4 TH/MM3 (1.0-4.8); MEAN CELL VOLUME 90.9 FL (80.0-100.0); MEAN CORPUSCULAR HEMOGLOBIN 31.6 PG (27.0-34.0); MEAN CORPUSCULAR HGB CONC 34.7 % (32.0-36.0); NEUT % 56.9 % (16.0-70.0); PLATELET COUNT 221 TH/MM3 (150-450); RED CELL DISTRIBUTION WIDTH 13.9 % (11.6-17.2); WHITE BLOOD COUNT 6.1 TH/MM3 (4.0-11.0)
[2017-08-23 08:43] LABS: HEMO FLAGS AUTO DIFF
--- NOTE | 2017-08-23 09:09 | HHI.PR ---
Subjective Remarks Feels better kidney function improved significantly. No n/v/d/c. No chest pain or sob. Objective Vitals Vital Signs Date Time Temp Pulse Resp B/P (MAP) Pulse Ox O2 Delivery O2 Flow Rate FiO2 08/23/17 08:00 97.8 77 18 132/80 (97) 97 08/23/17 04:00 98.9 78 20 121/75 (90) 95 08/23/17 00:00 99.5 77 20 114/68 (83) 95 08/22/17 20:00 97.5 66 22 99/64 (76) 96 08/22/17 16:00 96.7 73 16 109/70 (83) 98 08/22/17 11:21 96.2 78 20 104/63 (77) 96 I/O 08/22/17 08/22/17 08/22/17 08/23/17 08/23/17 08/23/17 07:00 15:00 23:00 07:00 15:00 23:00 Intake Total 200 ml 100 ml 620 ml 320 ml Balance 200 ml 100 ml 620 ml 320 ml Intake Oral 620 ml 320 ml IV Total 200 ml 100 ml # Voids 1 6 3 # Bowel Movements 1 0 Result Diagram: 08/23/17 0631 08/22/17 0636 Imaging Last Impressions Renal Ultrasound 08/22/17 0000 Signed Impressions: Service Date/Time: August 12:05 - CONCLUSION: 1. No hydronephrosis. 2. Bilateral benign-appearing renal cysts. Alex Crowe MD Chest X-Ray 08/21/17 0249 Signed Impressions: Service Date/Time: Monday, August 21, 2017 02:52 - CONCLUSION: 1. Cardiomegaly. No acute pulmonary disease. Sanju Snyder MD Abdomen/Pelvis CT 08/20/17 7492 Signed Impressions: Service Date/Time: Monday, August 21, 2017 01:53 - CONCLUSION: 1. No evidence of acute abdominal or pelvic process. No masses are identified. 2. Appendicolith within the noninflamed appendix Sanju Snyder MD Objective Remarks GENERAL: Patient is a well-nourished, well-developed male, awake and alert, not in respiratory distress. He does not look toxic appearing CARDIOVASCULAR: Regular rate and rhythm. No murmurs, rubs or gallops heard RESPIRATORY: Clear to auscultation. Breath sounds equal bilaterally. No rales , wheezing or rhonchi ABDOMEN: Soft, non-tender, nondistended. Bowel sounds present and normoactive. No guarding. No rebound. No organomegaly. EXTREMITIES: No clubbing, cyanosis, or edema. No joint effusion, has good ROM. No calf tenderness. Well perfused and warm. Has multiple insects bites at ankles mostly with no evidence of infection NEUROLOGICAL: Awake and alert. Cranial nerves grossly intact. Motor grossly within normal limits. PSYCHIATRIC: Normal affect, calm and cooperative. LINE: No evidence of infection A/P Assessment and Plan Very pleasant 66 yo male with Febrile illness with myalgias and arthralgias, WBC normal, elevated LFTs, ? viral syndrome - has increased monocytes - has dysuria but UA unremarkable - ?biliary, ?passed stone, but no pain - recent travel to [facility] x 4 days - Consulted ID specialist Dr Santana bates. appreciate recommendations - Stop Vancomycin, stop zosyn . To have Cipro x 7 days for dysuria per Dr Dillon ID. - Check ESR - Repeat LFT, CBC and BMP improved lft, cr and gfr - Check monoscreen is negative -hep panel ordered an pending Transaminitis: consider hep panel. Liver function improved significantly Hx ITP Acute on chronic renal insufficiency - likely worsened by poor po intake, and fluid loss from fevers. Work up per nephrology to follow up as OP results. - IVF MARINA on CKD2 Cr at 2.19 on admission. Improving. Kidney US reviewed benign cysts. Consult Dr Monique nephrology, discussed with Dr Eneida ZENG to DC patient if kidney function imprpves and to follow up with Dr Iraheta his nephrology as OP Discussed Condition With Patient, nurse, Dr Santana VALADEZ specialist Patient improved afebrile overnight. Kidney function improved cleared by specialists for DC to follow up asa OP with Pcp and consultants. Discharge Planning DC home in stable condition. To follow up as OP with Pcp and consultants. Diet healthy heart as sarina Activity ad flora as sarina Meds per med reconciliations Latonia Ramos MD Aug 23, 2017 09:09
[2017-08-23 09:18] LABS: ALKALINE PHOSPHATASE 114 U/L (45-117); ALT (GPT) 78 U/L (12-78); ANION GAP 8 MEQ/L (5-15); AST (GOT) 59 U/L (15-37); BICARBONATE 21.6 MEQ/L (21.0-32.0); BLOOD UREA NITROGEN 24 MG/DL (7-18); CHLORIDE 106 MEQ/L (98-107); GLOMERULAR FILTRATION RATE 42 ML/MIN (>89); LDH SERUM 218 U/L (87-241); MAGNESIUM 2.3 MG/DL (1.5-2.5); POTASSIUM 3.8 MEQ/L (3.5-5.1); SODIUM (NA) 136 MEQ/L (136-145); TOTAL BILIRUBIN ADULT 0.4 MG/DL (0.2-1.0)
[2017-08-23 09:59] LABS: BANDS 1 % (0-6); EOSINOPHILS 5 % (0-4); NEUTROPHIL # MANUAL DIFF 3.7 TH/MM3 (1.8-7.7); PLASMA CELLS 2 % (0-0); PLATELET ESTIMATE SMEAR NORMAL (NORMAL); PLATELET MORPHOLOGY NORMAL (NORMAL); POLYS (SEG NEUTROPHILS) 60 % (16-70); SCAN/DIFF FINAL DIFF MANUAL; WBC DIFF SAMPLE 100
[2017-08-27 17:48] LABS: ALBUMIN SPE 2.61 GM/DL (3.50-5.00); ALPHA 1 GLOBULIN 0.43 GM/DL (0.11-0.29); ALPHA 2 GLOBULIN 0.97 GM/DL (0.22-1.00); BETA GLOBULINS (SPE) 0.82 GM/DL (0.53-1.03)
--- NOTE | 2017-08-29 10:33 | PQ ---
Physician Query Response Document PATIENT: GEORGES HOLMAN : 1950 ADMIT DATE: 08/21/2017 2:32 AM DISCH DATE: 08/23/2017 12:03 PM RESPONDING PROVIDER #: [email or web address] QUERY TEXT: Conflicting Documentation Clarification A single mention or documentation of multiple diagnoses for the same clinical presentation appears in the record. Please clarify the diagnosis/diagnoses: Acute kidney failure vs acute kidney injury vs acute renal insufficiency. Please also document if the condition is: -- Confirmed and current -- Confirmed, treated and resolved -- Ruled out -- Other, please specify If you have any additional questions/comments and/or concerns, please do not hesitate to reach out to the CDI/Coding Hotline, Ext. [phone]. The patient's Clinical Indicators include: Progress Notes - Dr. Ramos - documents: Acute on chronic renal insufficiency - likely worsened by poor po intake, and fluid loss from fevers - IVF MARINA on CKD2 Cr at 2.19 on admission. Improving. Kidney US reviewed benign cysts. Consult Dr Monique nephrology. Consult report Dr. Gee Monique: Problem List: (1) MARINA (acute kidney injury) ICD Codes: N17.9 - Acute kidney failure, unspecified Plan: Appears to have resolving acute renal insufficiency likely related to underlying infection although c ultures are negative Progress Note - likely worsened by poor po intake, and fluid loss from fevers - IVF Query created by: Kay Box on 08/27/2017 10:58 AM RESPONSE TEXT: MARINA on CKD2 Cr at 2.19 on admission. Improving. Kidney US reviewed benign cysts. Consult Dr Monique nephrology. Electronically signed by: Latonia Ramos MD 08/29/2017 10:30 AM
== END 2017-08-23 12:03 | disposition home or self-care (01) | DRG 683 ==
LOC: NEPE 22:40 → NEDA 08-21 02:32 → NEPFCDU 08-21 04:34 → N07B 08-21 18:15
PROVIDERS: ADMIT Hospitalist; ATTEND Hospitalist
DX: N17.9 Acute kidney failure, unspecified (principal); E87.1 Hypo-osmolality and hyponatremia; D69.6 Thrombocytopenia, unspecified; B34.9 Viral infection, unspecified; E78.5 Hyperlipidemia, unspecified; N18.2 Chronic kidney disease, stage 2 (mild); R74.0 Nonspecific elevation of levels of transaminase and lactic acid dehydrogenase [LDH]
CPT/HCPCS: 71010; 74176; 76775; 80048; 80053; 80074; 80076; 81001; 82570; 83010; 83605; 83615; 83690; 83735; 83935; 84165; 84300; 85007; 85025; 85027; 85060; 85652; 86038; 86140; 86160; 86308; 87040; 96361; 96365; 96368; 96375; J1885; J2543; J3370; J7030; J7050; Q9963